=== PATIENT | female | born 1980 | race American Indian/Alaskan Native ===

== ENCOUNTER 2017-05-06 12:10 | Emergency (ER) | payer SELFPAY | END 2017-05-06 20:45 | disposition left against medical advice (07) | LOC: EDBD → ED 12:10 | DX: R07.9 Chest pain, unspecified (principal); Z53.21 Procedure and treatment not carried out due to patient leaving prior to being seen by health care provider | CPT/HCPCS: 93005; 93010 ==

== ENCOUNTER 2020-06-18 15:40 | Emergency (ER) | payer SELFPAY ==
[2020-06-18 16:18] VITALS: BP 144/87
[2020-06-18] MEDS ORDERED: ACETAMINOPHEN 500 MG TAB PO ONE (16:36)
[2020-06-18] MEDS ORDERED: ASPIRIN 325 MG TAB PO ONE (16:44)
[2020-06-18] MEDS ORDERED: amLODIPine 5 MG TAB PO ONE (16:44)
--- NOTE | 2020-06-18 16:47 | Emergency Department Report ---
ED Chest Pain HPI - General Chief Complaint: Shoulder Injury Stated Complaint: SHOULDER/NECK PAIN PUI?: No Time Seen by Provider: 06/18/20 16:14 Source: EMS Mode of arrival: Stretcher Limitations: No Limitations - History of Present Illness Initial Comments: This is a 39-year-old female with history of asthma, psoriasis, pulmonary embolism, hypertension, GERD who presents with left-sided chest pain for the past 9 months. Chest pain has been worse over the past 2 weeks. She was evaluated urgent care center earlier this week. She referred to power digger operator. She was evaluated by power digger operator on yesterday. Cage Tender planned for echocardiogram and stress test this upcoming week. Today she had recurrent sharp static shocking pain in her left chest. Radiates to her left flank and left shoulder. She has had these sensations since the of her mother in September earlier this year. Over the last 2 weeks the symptoms have been much worse. She denies travel. She denies tobacco abuse. She works as a logistics assistant in a warehouse setting. She states that drinking alcohol helps the sensation. Ibuprofen does not provide any relief. The symptoms occur at rest. No association with exertion. Sometimes exacerbated by movement. In 2005, she was diagnosed with pulmonary embolism. She was treated with Lovenox. Has not required anticoagulation since that time. Mother suddenly after cardiac arrest. MD Complaint: chest pain -: Gradual, month(s) (8 months) Onset: during rest Pain Location: left chest Pain Radiation: LUE, neck Severity: moderate, severe Severity scale (0 -10): 9 Quality: sharp Consistency: intermittent Improves With: other (drinkiing) Worsens With: movement Context: other (evaluated by urgent care and power digger operator this week) Treatments Prior to Arrival: other (ibuprofen at home) - Related Data Home Medications Medication Instructions Recorded Confirmed Last Taken ALBUTEROL NEB's [Proventil 0.083% 2.5 mg IH DAILY 06/18/20 06/18/20 06/17/20 NEBS] Prednisone 10 mg PO TID 06/18/20 06/18/20 06/17/20 amLODIPine 5 mg PO DAILY 06/18/20 06/18/20 06/17/20 Allergies Allergy/AdvReac Type Severity Reaction Status Date / Time No Known Allergies Allergy Verified 05/06/17 12:23 Heart Score - HEART Score History: Slightly suspicious EKG: Non-specific Age: < 45 Risk factors: 1-2 risk factors Troponin: < normal limit HEART Score: 2 ED Review of Systems ROS: Stated complaint: SHOULDER/NECK PAIN Other details as noted in HPI Comment: All other systems reviewed and negative Constitutional: denies: fever, malaise Respiratory: denies: cough, shortness of breath Cardiovascular: chest pain Gastrointestinal: denies: abdominal pain, nausea, vomiting ED Past Medical Hx - Past Medical History Previous Medical History?: Yes Hx Hypertension: Yes Hx Pulmonary Embolism: Yes Hx GERD: Yes Hx Asthma: Yes Additional medical history: PE 2014 - Surgical History Past Surgical History?: Yes Additional Surgical History: ectopic - Family History Family history: other (mother after sudden cardiac arrest ) - Social History Smoking Status: Never Smoker Substance Use Type: Alcohol - Medications Home Medications: Home Medications Medication Instructions Recorded Confirmed Last Taken Type ALBUTEROL NEB's [Proventil 0.083% 2.5 mg IH DAILY 06/18/20 06/18/20 06/17/20 History NEBS] Prednisone 10 mg PO TID 06/18/20 06/18/20 06/17/20 History amLODIPine 5 mg PO DAILY 06/18/20 06/18/20 06/17/20 History ED Physical Exam - General Limitations: No Limitations General appearance: alert, in no apparent distress - Head Head exam: Present: atraumatic, normocephalic - Eye Eye exam: Present: normal appearance - ENT ENT exam: Present: mucous membranes moist - Neck Neck exam: Present: normal inspection, full ROM - Respiratory Respiratory exam: Present: normal lung sounds bilaterally. Absent: respiratory distress, wheezes, rales, rhonchi - Cardiovascular Cardiovascular Exam: Present: regular rate, normal rhythm, normal heart sounds. Absent: systolic murmur, diastolic murmur, rubs, gallop - GI/Abdominal GI/Abdominal exam: Present: soft, normal bowel sounds. Absent: distended, tenderness, guarding, rebound - Extremities Exam Extremities exam: Present: normal inspection - Neurological Exam Neurological exam: Present: alert, oriented X3 - Psychiatric Psychiatric exam: Present: normal affect, normal mood - Skin Skin exam: Present: warm, dry, intact, normal color. Absent: rash ED Course Vital Signs 06/18/20 06/18/20 06/18/20 15:54 16:02 16:15 Temperature 98.5 F Pulse Rate 100 H Respiratory 18 Rate Blood Pressure 170/90 144/87 Blood Pressure [Right] O2 Sat by Pulse 98 100 98 Oximetry 06/18/20 06/18/20 16:16 16:18 Temperature 98.5 F Pulse Rate 88 Respiratory 18 18 Rate Blood Pressure Blood Pressure 144/87 [Right] O2 Sat by Pulse 98 98 Oximetry ED Medical Decision Making - Lab Data Result diagrams: 06/18/20 17:00 06/18/20 17:00 - EKG Data -: EKG Interpreted by Me EKG shows normal: sinus rhythm, axis, intervals, QRS complexes, ST-T waves Rate: normal - EKG Data Interpretation: normal EKG 06/18/20 17:02 EKG obtained 1652 EKG interpreted by wv Normal sinus rhythm normal rate normal axis normal intervals no ST elevation no ST-T signs of ischemia normal EKG rate 85 bpm - Radiology Data Radiology results: report reviewed CTA CHEST WITH IV CONTRAST INDICATION: Left-sided chest pain for 2 weeks, history of PTE CONTRAST: 100 cc Omnipaque 350 IV COMPARISON: Portable chest x-ray tonight Three-plane MIP reconstructions were produced. All CT scans at this location are performed using CT dose reduction for ALARA by means of automated exposure control. NOTE: Resolution is decreased and artifact is introduced by the patient's size. FINDINGS: No significant axillary or chest wall abnormalities are seen. Visualized portions of the upper abdomen show fatty infiltration of the liver. No pleural effusions are seen. No mediastinal or hilar masses are noted. No obvious endobronchial lesions are seen. No pneumothorax or pneumomediastinum are noted. Lung melchor show no significant infiltrates, nodules, or masses. Aorta shows no aneurysmal dilatation or evidence of dissection. Good opacification of the pulmonary arterial system was achieved. I do not see evidence of pulmonary thromboembolism. IMPRESSION: Negative study Chest radiograph: No acute findings according to radiology report - Medical Decision Making Ms. Lopez is a 39-year-old female who presents with chest pain atypical for ACS for the past 8 months. Heart score 2. She has recently started outpatient cardiology evaluation with Dr. Neville. Outpatient stress testing and echocardiogram will be scheduled for this upcoming week. Due to history of previous pulmonary embolism, patient is at high risk for recurrent PE. CT angiogram of the chest did not reveal acute pulmonary embolism. Patient is discharged home with reassurance. Acute myocardial infarction ruled out with 2 troponin assays. Critical care attestation.: If time is entered above; I have spent that time in minutes in the direct care of this critically ill patient, excluding procedure time. ED Disposition Clinical Impression: Chest pain, History of pulmonary embolism Disposition: DC-01 TO HOME OR SELFCARE Is pt being admited?: No Does the pt Need Aspirin: No Condition: Stable Instructions: Chest Pain (ED) Referrals: JOSSE NEVILLE MD [Staff Physician] - 2-3 Days Forms: Work/School Release Form(ED)
[2020-06-18 17:09] LABS: Basophils % (Auto) 0.5 % (0.0-1.8); Eosinophils # (Auto) 0.1 K/mm3 (0.0-0.4); Eosinophils % (Auto) 1.5 % (0.0-4.3); Hematocrit 37.3 % (30.3-42.9); Hemoglobin 11.5 gm/dl (10.1-14.3); Lymphocytes # (Auto) 1.6 K/mm3 (1.2-5.4); Lymphocytes % (Auto) 28.6 % (13.4-35.0); Mean Corpuscular HGB Conc 31 % (30-34); Mean Corpuscular Volume 77 fl (79-97); Monocytes # (Auto) 0.4 K/mm3 (0.0-0.8); Monocytes % (Auto) 7.6 % (0.0-7.3); Platelet Count 346 K/mm3 (140-440); Red Blood Count 4.87 M/mm3 (3.65-5.03)
[2020-06-18 17:10] LABS: Red Cell Distribution Width 21.3 % (13.2-15.2)
[2020-06-18 17:20] LABS: Blood Urea Nitrogen 10 mg/dL (7-17); Calcium 9.1 mg/dL (8.4-10.2); Hemolysis Index 10
[2020-06-18 17:24] LABS: BUN/Creatinine Ratio 17
--- NOTE | 2020-06-18 19:22 | XRay Report ---
CHEST 1 VIEW INDICATION / CLINICAL INFORMATION: Chest Pain. COMPARISON: None available. FINDINGS: SUPPORT DEVICES: None. HEART / MEDIASTINUM: No significant abnormality. LUNGS / PLEURA: No significant pulmonary or pleural abnormality. No pneumothorax. ADDITIONAL FINDINGS: No significant additional findings. IMPRESSION: 1. No acute findings. Signer Name: Andres Jason MD Signed: 06/18/2020 7:17 PM Workstation Name: [id number]
--- NOTE | 2020-06-18 19:39 | Cat Scan Report ---
CTA CHEST WITH IV CONTRAST INDICATION: Left-sided chest pain for 2 weeks, history of PTE CONTRAST: 100 cc Omnipaque 350 IV COMPARISON: Portable chest x-ray tonight Three-plane MIP reconstructions were produced. All CT scans at this location are performed using CT d ose reduction for ALARA by means of automated exposure control. NOTE: Resolution is decreased and artifact is introduced by the patient's size. FINDINGS: No significant axillary or chest wall abnormalities are seen. Visualized portions of the up per abdomen show fatty infiltration of the liver. No pleural effusions are seen. No mediastinal or hi lar masses are noted. No obvious endobronchial lesions are seen. No pneumothorax or pneumomediastinum are noted. Lung melchor show no significant infiltrates, nodules, or masses. Aorta shows no aneurysmal dilatation or evidence of dissection. Good opacification of the pulmonary arterial system was achieved. I do not see evidence of pulmonary thromboembolism. IMPRESSION: Negative study Signer Name: Ryan Vann MD Signed: 06/18/2020 7:34 PM Workstation Name: [id number]
== END 2020-06-18 20:22 | disposition home or self-care (01) ==
LOC: ED 15:40
DX: R07.9 Chest pain, unspecified (principal); I10 Essential (primary) hypertension; K21.9 Gastro-esophageal reflux disease without esophagitis; J45.909 Unspecified asthma, uncomplicated; Z98.890 Other specified postprocedural states; Z79.899 Other long term (current) drug therapy; Z86.711 Personal history of pulmonary embolism
CPT/HCPCS: 36415; 71045; 71275; 80048; 84484; 85025; 85379; 93005; 99285; Q9967